=== PATIENT | male | born 1995 | race Native Hawaiian/Other Pacific Islander ===

== ENCOUNTER 2022-06-27 17:52 | Emergency (ER) | payer OTHER ==
[~2022-06-27] VITALS: Ht 185.4 cm; Wt 138.3 kg
[2022-06-27 18:59] LABS: PLATELET COUNT 296 K/uL (142-355)
[2022-06-27 19:02] LABS: POTASSIUM 3.3 mmol/L (3.6-5.2)
[2022-06-27 19:13] LABS: PARTIAL THROMBOPLASTIN TIME 26.8 SECONDS (24.5-33.6)
== END 2022-06-27 21:19 | disposition left against medical advice (07) ==
LOC: ED 17:52
PROVIDERS: Family Medicine
DX: S20.211A Contusion of right front wall of thorax, initial encounter (principal); E87.6 Hypokalemia; V47.5XXA Car driver injured in collision with fixed or stationary object in traffic accident, initial encounter; Y92.410 Unspecified street and highway as the place of occurrence of the external cause; Z53.29 Procedure and treatment not carried out because of patient's decision for other reasons
CPT/HCPCS: 80053; 80307; 82550; 84484; 85027; 85379; 85610; 85730; 93005; 99284